=== PATIENT | male | born 1990 | race Caucasian/White ===

== ENCOUNTER 2022-02-13 20:24 | Emergency (ER) | payer OTHER ==
--- NOTE | 2022-02-13 22:11 | NUR ---
Patient called 3x. Patient left without being triaged. ER MD aware
== END 2022-02-13 22:11 | disposition left against medical advice (07) ==
LOC: SED 20:24
DX: R10.9 Unspecified abdominal pain (principal); Z53.21 Procedure and treatment not carried out due to patient leaving prior to being seen by health care provider